=== PATIENT | female | born 1975 | race Caucasian/White ===

== ENCOUNTER 2016-03-03 18:21 | Emergency (ER) | payer SELFPAY ==
[~2016-03-03] VITALS: Ht 154.9 cm; Wt 55.0 kg
[2016-03-03 18:24] VITALS: BP 128/64; PULSE 87; RESP 16; TEMP 98.2; O2SAT 99
[2016-03-03 20:48] LABS: BACTERIA, URINE MOD /hpf; BLOOD, URINE MOD (NEG); COMMENT (UR) CULTURE INDICATED; CULTURE IF INDICATED CULTURE INDICATED; GLUCOSE,URINE NEG (NEG); KETONE, URINE 80 mg/dL (NEG); MUCUS URINE FEW /lpf (OCC); NITRITE,URINE POS (NEG); SQUAMOUS EPITHELIAL CELL URINE 3 /hpf (0-5); URINE COLOR YELLOW (YELLW/STRAW)
[2016-03-03] MEDS ORDERED: SODIUM CHLOR 0.9% 1000 ML INJ 1,000 ML IV ONE (21:15)
[2016-03-03] MEDS ORDERED: KETOROLAC TROMETHAMINE 30 MG/ML (IVP) VIAL IV PUSH ONE (21:15)
[2016-03-03] MEDS ORDERED: cefTRIAXone INJ 1,000 MG in SODIUM CHLORIDE 0.9% INJ 100 ML IV ONE (21:15)
--- NOTE | 2016-03-03 21:37 | PD ---
HPI Chief Complaint: Complaint Time Seen by Provider: 21:32 Travel History International Travel<30 days: No Contact w/Intl Traveler<30days: No Traveled to known affect area: No History of Present Illness HPI 40-year-old female presents to emergency department with complains of right flank and right lower quadrant pain over the last 12-24 hours. She states that this seems similar to when she has had her kidney stone in the past. She states the pain radiates from her right flank into her right groin. She states the pain can be very sharp and severe at times. Pain is moderate to severe intensity at times. Currently it is mild to moderate. Exacerbated by palpation of the abdomen and movement. It causes her to walk hunched over. She has noted some increased urination, frequency and urgency. She denies any dysuria. No vaginal discharge or abnormal bleeding. She stated her last period was the second week of January. She denies any fever or chills. No chest pain or shortness of breath. No nausea vomiting. No hematuria. PFSH Past Medical History Narrative Medical kIDNEY STONES Tetanus Vaccination: < 5 Years ?: Not LMP: 02/23/16 Past Surgical History Narrative Surgical Tubal ligation Social History Alcohol Use: No Tobacco Use: No Allergies-Medications (Allergen,Severity, Reaction): Coded Allergies: No Known Allergies (Unverified , 03/03/16) Reported Meds & Prescriptions Reported Meds & Active Scripts Active Pyridium (Phenazopyridine HCl) 200 Mg Tab 200 Mg PO Q8H PRN Diclofenac Sodium DR (Diclofenac Sodium) 50 Mg Tabdr 50 Mg PO TID Macrobid (Nitrofurantoin Monoh/Nitrofur Macro) 100 Mg Cap 100 Mg PO BID Review of Systems Except as stated in HPI: all other systems reviewed are Neg Physical Exam Narrative GENERAL: Well-developed, well-nourished in no apparent distress. Nontoxic appearing. HEAD: Normocephalic, atraumatic. EYES: Pupils equal round and reactive. Extraocular motions intact. No scleral icterus. No injection or drainage. ENT: Nose clear. Throat without erythema, tonsillar hypertrophy or exudate. Uvula midline. Airway patent. NECK: Trachea midline. Supple, nontender, moves head freely. No central bony tenderness or spasm. CARDIOVASCULAR: Regular rate and rhythm without murmurs, gallops, or rubs. RESPIRATORY: Clear to auscultation. Breath sounds equal bilaterally. No wheezes , rales, or rhonchi. GASTROINTESTINAL: Abdomen soft, tenderness in the right lower quadrant with mild guarding. No rebound., nondistended. No hepato-splenomegaly, or palpable masses. EXTREMITIES: No clubbing, cyanosis, or edema. No joint tenderness. BACK: Nontender without deformity. Positive right flank tenderness. NEUROLOGICAL: Awake, alert and oriented x 3 .Cranial nerves grossly intact. Motor and sensory grossly within normal limits. Normal speech. Data Data Last Documented VS Vital Signs Date Time Temp Pulse Resp B/P Pulse Ox O2 Delivery O2 Flow Rate FiO2 03/03/16 18:24 98.2 87 16 128/64 99 Room Air Orders Urinalysis - C+S If Indicated (03/03/16 19:53) Urine Culture (03/03/16 19:40) Complete Blood Count With Diff (03/03/16 21:12) Basic Metabolic Panel (Bmp) (03/03/16 21:12) Iv Access Insert/Monitor (03/03/16 21:12) Ed Urine Pregnancytest Poc (03/03/16 21:12) Sodium Chlor 0.9% 1000 Ml Inj (Ns 1000 M (03/03/16 21:15) Ketorolac Inj (Toradol Inj) (03/03/16 21:15) Ceftriaxone Inj (Rocephin Inj) (03/03/16 21:15) Ct Abd/Pel W/O Iv Contrast (03/03/16 21:12) Phenazopyridine (Pyridium) (03/03/16 22:15) Acetamin-Hydrocod 325-5 Mg ([place] 5-325 (03/03/16 22:15) Labs Laboratory Tests Test 03/03/16 03/03/16 19:40 21:20 Urine Color YELLOW Urine Turbidity HAZY Urine pH 6.0 Urine Specific [place] 1.013 Urine Protein TRACE mg/dL Urine Glucose (UA) NEG mg/dL Urine Ketones 80 mg/dL Urine Occult Blood MOD Urine Nitrite POS Urine Bilirubin NEG Urine Urobilinogen LESS THAN 2.0 MG/DL Urine Leukocyte Esterase LARGE Urine RBC 4 /hpf Urine WBC 68 /hpf Urine Squamous Epithelial 3 /hpf Cells Urine Bacteria MOD /hpf Urine Mucus FEW /lpf Microscopic Urinalysis Comment CULTURE INDICATED White Blood Count 10.6 TH/MM3 Red Blood Count 4.15 MIL/MM3 Hemoglobin 9.5 GM/DL Hematocrit 30.7 % Mean Corpuscular Volume 73.9 FL Mean Corpuscular Hemoglobin 22.8 PG Mean Corpuscular Hemoglobin 30.9 % Concent Red Cell Distribution Width 17.0 % Platelet Count 370 TH/MM3 Mean Platelet Volume 7.8 FL Neutrophils (%) (Auto) 72.7 % Lymphocytes (%) (Auto) 18.3 % Monocytes (%) (Auto) 7.1 % Eosinophils (%) (Auto) 1.3 % Basophils (%) (Auto) 0.6 % Neutrophils # (Auto) 7.7 TH/MM3 Lymphocytes # (Auto) 1.9 TH/MM3 Monocytes # (Auto) 0.7 TH/MM3 Eosinophils # (Auto) 0.1 TH/MM3 Basophils # (Auto) 0.1 TH/MM3 CBC Comment AUTO DIFF Sodium Level 140 MEQ/L Potassium Level 3.7 MEQ/L Chloride Level 104 MEQ/L Carbon Dioxide Level 28.7 MEQ/L Anion Gap 7 MEQ/L Blood Urea Nitrogen 8 MG/DL Creatinine 0.83 MG/DL Estimat Glomerular Filtration 76 ML/MIN Rate Random Glucose 98 MG/DL Calcium Level 8.9 MG/DL MDM Medical Decision Making Medical Screen Exam Complete: Yes Emergency Medical Condition: Yes Medical Record Reviewed: Yes Interpretation(s) CBC & BMP Diagram 03/03/16 21:20 Laboratory Tests Test 03/03/16 03/03/16 19:40 21:20 Urine Color YELLOW Urine Turbidity HAZY Urine pH 6.0 Urine Specific [place] 1.013 Urine Protein TRACE mg/dL Urine Glucose (UA) NEG mg/dL Urine Ketones 80 mg/dL Urine Occult Blood MOD Urine Nitrite POS Urine Bilirubin NEG Urine Urobilinogen LESS THAN 2.0 MG/DL Urine Leukocyte Esterase LARGE Urine RBC 4 /hpf Urine WBC 68 /hpf Urine Squamous Epithelial 3 /hpf Cells Urine Bacteria MOD /hpf Urine Mucus FEW /lpf Microscopic Urinalysis Comment CULTURE INDICATED White Blood Count 10.6 TH/MM3 Red Blood Count 4.15 MIL/MM3 Hemoglobin 9.5 GM/DL Hematocrit 30.7 % Mean Corpuscular Volume 73.9 FL Mean Corpuscular Hemoglobin 22.8 PG Mean Corpuscular Hemoglobin 30.9 % Concent Red Cell Distribution Width 17.0 % Platelet Count 370 TH/MM3 Mean Platelet Volume 7.8 FL Neutrophils (%) (Auto) 72.7 % Lymphocytes (%) (Auto) 18.3 % Monocytes (%) (Auto) 7.1 % Eosinophils (%) (Auto) 1.3 % Basophils (%) (Auto) 0.6 % Neutrophils # (Auto) 7.7 TH/MM3 Lymphocytes # (Auto) 1.9 TH/MM3 Monocytes # (Auto) 0.7 TH/MM3 Eosinophils # (Auto) 0.1 TH/MM3 Basophils # (Auto) 0.1 TH/MM3 CBC Comment AUTO DIFF CT abdomen and pelvis: Negative for acute inflammatory process, no renal calculi or hydronephrosis. Differential Diagnosis MDM: High Differential diagnosis acute appendicitis, pyelonephritis , nephrolithiasis, UTI Narrative Course IV access is obtained. Patient's urine pricey test is negative. Patient's given a liter bolus of normal saline, Toradol 30 mg IV, Rocephin 1 g IV. We will obtain a CT scan of the abdomen and pelvis to rule out infected kidney stone versus pyelonephritis versus appendicitis. The patient is given Pyridium 200 mg by mouth, Lortab 5 mg by mouth. Patient's CT scan or laboratory findings have been reviewed with the patient and her significant other. The patient is feeling improved here in the ER. She has had no vomiting. She is considered medically stable. CT of the abdomen and pelvis revealed no hydronephrosis, renal calculi or acute inflammatory process in the pelvis. The patient has symptoms consistent with pyelonephritis with right flank and right lower abdominal discomfort. Patient is nontoxic. Her symptoms are of 24 hour duration. She'll be discharged home on Pyridium, diclofenac and Macrobid. She'll be advised to recheck in the next 48 hours or return sooner problems. This is right pyelonephritis Diagnosis Primary Impression: right pyelonephritis Patient Instructions: Narcotic given in the ED, General Instructions Additional Instructions: Rest. Increase fluids. Diclofenac, Macrobid and Pyridium. Follow-up with a primary care doctor in 48 hours. Return to the ER for any problems. Med/Other Pt SpecificInfo: Prescription(s) given Scripts Phenazopyridine (Pyridium)200 Mg Qst061 Mg PO Q8H PRN (DYSURIA) #9 TAB Prov:Alex Garcia MD 03/03/[address] 50 Mg Tabdr50 Mg PO TID #21 TAB Prov:Alex Garcia MD 03/03/16 Nitrofurantoin Monohydrate Macrocrystals (Macrobid)100 Mg [id number] Mg PO BID #20 CAP Prov:Alex Garcia MD 03/03/16 Disposition: 01 DISCHARGE HOME Condition: Stable Jim [place] Mar 03, 2016 21:37
[2016-03-03 21:51] LABS: AUTOMATED NEUTROPHIL # 7.7 TH/MM3 (1.8-7.7); BASOPHIL # 0.1 TH/MM3 (0-0.2); BASOPHIL % 0.6 % (0.0-2.0); EOSINOPHIL # 0.1 TH/MM3 (0-0.4); EOSINOPHIL % 1.3 % (0.0-4.0); HEMATOCRIT 30.7 % (35.0-46.0); LYMPH % 18.3 % (9.0-44.0); LYMPHOCYTE # 1.9 TH/MM3 (1.0-4.8); MEAN CELL VOLUME 73.9 FL (80.0-100.0); MEAN CORPUSCULAR HEMOGLOBIN 22.8 PG (27.0-34.0); MEAN CORPUSCULAR HGB CONC 30.9 % (32.0-36.0); MONO % 7.1 % (0.0-8.0); NEUT % 72.7 % (16.0-70.0); PLATELET COUNT 370 TH/MM3 (150-450); RED BLOOD COUNT 4.15 MIL/MM3 (4.00-5.30); WHITE BLOOD COUNT 10.6 TH/MM3 (4.0-11.0)
[2016-03-03 21:53] LABS: HEMO FLAGS AUTO DIFF
--- NOTE | 2016-03-03 21:57 | RADRPT ---
EXAM DATE/TIME: 03/03/2016 21:38 [facility] COMPARISON: No previous studies available for comparison. INDICATIONS : Lower abdominal pain with burning on urination. ORAL CONTRAST: No oral contrast ingested. RADIATION DOSE: 5.05 CTDIvol (mGy) MEDICAL HISTORY : None SURGICAL HISTORY : None. ENCOUNTER: Initial ACUITY: 3 days PAIN SCALE: 5/10 LOCATION: Bilateral lower quadrant TECHNIQUE: Volumetric scanning of the abdomen and pelvis was performed. Using automated exposure control and ad justment of the mA and/or kV according to patient size, radiation dose was kept as low as reasonably achievable to obtain optimal diagnostic quality images. FINDINGS: LOWER LUNGS: The visualized lower lungs are clear. LIVER: Homogeneous density without lesion. There is no dilation of the biliary tree. No calcified gallston es. SPLEEN: Normal size without lesion. PANCREAS: Within normal limits. KIDNEYS: Normal in size and shape. There is no mass, stone, or hydronephrosis. ADRENAL GLANDS: Within normal limits. VASCULAR: There is no aortic aneurysm. BOWEL/MESENTERY: The stomach, small bowel, and colon demonstrate no acute abnormality. There is no free intraperitone al air or fluid. ABDOMINAL WALL: Within normal limits. RETROPERITONEUM: There is no lymphadenopathy. BLADDER: No wall thickening or mass. REPRODUCTIVE: Within normal limits. INGUINAL: There is no lymphadenopathy or hernia. MUSCULOSKELETAL: Within normal limits for patient age. CONCLUSION: 1. No renal calculi or hydronephrosis. 2. No acute inflammatory process. Benito Alonzo MD on March 03, 2016 at 21:52 Board Certified Radiologist. This report was verified electronically.
[2016-03-03] MEDS ORDERED: DICL50TA3 PO (22:05)
[2016-03-03] MEDS ORDERED: MACR100C2 PO (22:05)
[2016-03-03] MEDS ORDERED: PYRI200T4 PO (22:05)
[2016-03-03] MEDS ORDERED: ACETAMINOPHEN/HYDROcodone 325 MG/5 MG TAB PO ONE (22:15)
[2016-03-03] MEDS ORDERED: PHENAZOPYRIDINE HCL 200 MG TAB PO ONE (22:15)
[2016-03-03 22:22] LABS: BICARBONATE 28.7 MEQ/L (21.0-32.0); POTASSIUM 3.7 MEQ/L (3.5-5.1)
[2016-03-03 22:30] LABS: SCAN/DIFF AUTO DIFF CONFIRMED
== END 2016-03-03 23:33 | disposition home or self-care (01) ==
LOC: NEPB 18:21
DX: N12 Tubulo-interstitial nephritis, not specified as acute or chronic (principal); B96.20 Unspecified Escherichia coli [E. coli] as the cause of diseases classified elsewhere
CPT/HCPCS: 74176; 80048; 81001; 84703; 85025; 87077; 87086; 87186; 96374; 96375; 99284; J0696; J1885; J7030